=== PATIENT | male | born 1965 | race Caucasian/White ===

== ENCOUNTER → 2018-04-26 | Outpatient (CLI) | payer OTHER ==
--- NOTE | 2018-04-26 11:23 | RAD ---
DATE: 2017 EXAM: DIGITAL DIAGNOSTIC BILATERAL, BREAST RIGHT HISTORY: Right palpable nodule. On testosterone replacement therapy. COMPARISON: None available This study was interpreted with the benefit of Computerized Aided Detection (CAD). The breast parenchyma shows scattered fibroglandular densities. Breast parenchyma level B. FINDINGS: Bilateral CC and MLO views of each breast were obtained. Spot compression CC and MLO views of the right breast were obtained. Right breast: There is a focal asymmetry in the region of palpable abnormality on the right breast in the upper slightly outer right breast which appears to dissipate with compression suggestive of summation artifact from overlapping fibroglandular tissue. There is asymmetric increased density of fibroglandular tissue involving the right breast. Left breast: There are no suspicious medical stations, masses or areas of architectural distortion. Targeted sonographic evaluation of the right breast was performed in the region of palpable abnormality at the 12:00 position 4 cm from the nipple. No suspicious stable or solid mass is visualized. There is no architectural distortion. Normal paraspinal tissues visualized. IMPRESSION: 1. Asymmetric increased fibroglandular tissue noted within the right breast suggestive of gynecomastia. No suspicious abnormalities visualized in the area of palpable finding. Findings are. Represent benign etiology, however a 6 month follow-up right breast ultrasound and mammogram examination is recommended. 2. Negative left mammogram. BI-RADS CATEGORY: 2 BENIGN FINDING(S) RECOMMENDED FOLLOW-UP: 6M 6 MONTH FOLLOW-UP PQRS compliance statement: Mammography is a sensitive method for finding small breast cancers, but it does not detect them all and is not a substitute for careful clinical examination. A negative mammogram does not negate a clinically suspicious finding and should not result in delay in biopsying a clinically suspicious abnormality. "Our facility is accredited by the [employer] Mammography Program."
== END | disposition home or self-care (01) ==
LOC: MAMMO 08:30
PROVIDERS: ATTEND Physician Assistant Medical
DX: R92.8 Other abnormal and inconclusive findings on diagnostic imaging of breast (principal)
CPT/HCPCS: 76641; 77066